=== PATIENT | male | born 1985 | race Caucasian/White ===

== ENCOUNTER 2018-02-05 12:37 | Emergency (ER) | payer MEDICAID, SELFPAY ==
[2018-02-05 12:42] VITALS: BP 145/82; PULSE 81; RESP 16; TEMP 36.8; O2SAT 98
--- NOTE | 2018-02-05 12:49 | W.ED.GENAD ---
Discharge Plan Disposition Patient Disposition: HOME Condition: Fair Discharge Details Chief Complaint: Nk/Back Pain Clinical Impression: Muscle spasm, Back pain Primary Care Provider: NONE,NONE ED Provider: Suha Foster Home Meds and New Rx's Prescriptions: New ibuprofen 600 mg tablet 600 mg PO QID PRN (Reason: pain) Qty: 20 RF: 0 diazepam [Valium] 5 mg tablet 5 mg PO TID PRN (Reason: muscle spasm) Qty: 10 RF: 0 Discharge Instructions Instructions: Muscle Spasm (ED), Back Pain (ED) Additional Instructions: Encourage water intake, this will help reduce spasm. Gentle stretching and frequent ambulation. You may take Tylenol 1,000mg every 6 hours as needed for pain, Ibuprofen 600mg tushar 6 hours as needed for pain. Next time you may take Ibuprofen is 9pm. Valium as prescribed for muscle spasm, do not drive while taking this medication. Salonpas or Lidoderm patches to help with discomfort, these are available over the counter. Physical therapy referral in packet, please call to schedule appointment. If you develop fevers/chills, increased pain, change in urinary to bowel habits or other new/worsening symptoms please seek care urgently once again. Stand Alone Forms: Physical Therapy Referral, Work Release Discharge Data Discharge Date/Time-TO BE ENTERED AT DEPARTURE: 02/05/18 14:39 Medical Decision Making Patient is a 32 year old male, covered by significant other, with chief complaint of left sided back pain that began 4 days ago after heavy lifting at work. He reports that he is lifted this object multiple times at work that he believes he did it wrong. States he has had intermittent tingling in the left buttock. Denies any weakness in the lower extremities. Denies any incontinence. No urinary retention. Sharp and dull testing was intact in lower extremities with no saddle paresthesias noted. Patient is 5 out of 5 strength in the lower extremities. He has good range of motion. Pain is elicited with forward flexion and extension. No pain with rotational movements. On exam, he is noted to have a area of swelling on the left side compared to the right of the area of discomfort. This consistent with muscle spasm. Patient be treated with Flexeril, Toradol, Tylenol and Lidoderm patch. Patient is endorsing moderate amount of pain but as per quite comfortable on exam. Proximal 30 minutes after the patient received his medications, reassess the patient. He is lying in a very unusual position in bed and reports that the pain has increased. He reports that this may be secondary to the bed. I did ask him to get up and move about the room and perform gentle stretching. We did discuss that muscle spasm can get worse with sedentary behaviors. We will augment the above with oral Valium. Discussed this plan of the patient is in agreement. Patient received Valium as well as Reiki session from [facility]. Is now reporting that his pain is much more manageable and rates at a 3 out of 10. He is moving about the room with ease. Denies any radiating pain or altered sensation. Patient I discussed pathology muscle spasm and back pain. Encourage hydration. Encouraged gentle stretching and frequent ambulation. Referral for physical therapy will be given. I encouraged use of Tylenol and/or ibuprofen as needed for discomfort. May augment this with Valium as prescribed to help with muscle spasm. We discussed topical options that may also help with discomfort. Advise close follow-up with primary care. This patient does not have primary care locally, I have asked her career professional help facilitate follow-up appointment. He was given strict return precautions. All his questions and concerns were addressed and he is in agreement with this plan. HPI General Mode of arrival: ambulatory. Date/Time Provider Initiated Documentation: 02/05/18 12:48. Limitations to Documentation: no limitations. Information obtained by: patient. History of Present Illness 32 year old M presents to the emergency department with the chief complaint of left sided back pain, described as moderate, with intensity rated at 6. Quality is described as aching and sharp (with movement), and is localized to the back. Patient reports radiation to back (radiates into the left buttock). Patient started experiencing this day(s) (4) and it has been constant. No relieving factors improve symptom(s), Movement worsens symptoms (with flexion and extension) . Patient notes no other symptoms.; denies fever/chills, nausea/vomiting, rash and weakness. Patient did receive the following treatments prior to arrival, NSAID (ibuprofen ) Related Data Home Medications Medication Instructions Recorded Confirmed diazepam [Valium] 5 mg PO TID PRN #10 tab 02/05/18 ibuprofen 600 mg PO QID PRN #20 tab 02/05/18 Previous Rx's Medication Instructions Recorded diazepam [Valium] 5 mg PO TID PRN #10 tab 02/05/18 ibuprofen 600 mg PO QID PRN #20 tab 02/05/18 Allergies Allergy/AdvReac Type Severity Reaction Status Date / Time Penicillins Allergy Intermediate Hives Unverified 07/08/15 08:39 General Stated Complaint: Nk/Back Pain KELVIN: 4 Review of Systems Constitutional Reports as per HPI and Denies weakness Cardiovascular Denies chest pain and Denies dyspnea Respiratory Denies cough and Denies dyspnea Gastrointestinal Denies change in stool character, Denies nausea and Denies vomiting Genitourinary Reports system reviewed and no additional complaints, except as docu (denies change in urinary habits) and Denies urinary incontinence Musculoskeletal Reports as per HPI, Denies abnormal gait, Denies numbness and Reports tingling (into the left buttock) Integumentary/Breasts Denies erythema and Denies rash Neurologic Denies abnormal gait, Denies numbness, Reports tingling (into the left buttock) and Denies weakness [facility] Social History Smoking/Tobacco Use Status: Current every day Exam Const General: cooperative, healthy appearing, comfortable, no acute distress, well developed and well groomed Nutritional Appearance: average body habitus and well nourished Orientation: alert and awake Eyes General: appearance normal, both eyes and all related structures Resp Effort & Inspection: normal respiratory effort, able to speak in complete sentences and no respiratory distress Auscultation: clear to auscultation bilaterally Cardio Rate: regular rate Rhythm: regular rhythm Heart Sounds: S1 normal and S2 normal Back/Spine/Pelvis Cervical Spine: normal cervical lordosis and cervical ROM normal Thoracic/Lumbar Spine: thoracic and lumbar spine normal to inspection (patient has palpable and visible spasm along the left side of the back, please see image below. No erythema, warmth. No signs of trauma. No midline or paraspinal tenderness. No pain with palpation. No step off noted. ), No bend over test abnormal (pain with palpation over the left side of his back with forward flexion and extension), No kyphosis, No mass, pain with thoraco-lumbar ROM (no pain with rotational movements), No paraspinal tenderness and No scoliosis Sacroiliac joints: not on the right and not on the left Sacrum: no ecchymosis, no erythema, no swelling and no tenderness Back/spine/pelvis image: 1. area of pain and swelling Skin General skin exam: no rashes or lesions noted Neuro General: alert and awake Cognition: normal cognition Speech: speech normal Gait: normal gait Motor: muscle tone normal throughout and strength 5/5 throughout Sensory Exam: no sensory deficits noted (sharp and dull testing is intact) DTR's: Rt Patellar: 2+, Lt Patellar: 2+, Rt Ankle: 2+ and Lt Ankle: 2+ Plantar Reflexes: Downgoing: bilateral Coordination: [id number] test normal Extrem General: normal to inspection, full ROM, normal capillary refill and no joint enlargement Psych Appearance: grossly normal and well kempt Mental Status: mental status grossly normal (at baseline) Speech and Movement: speech and movement normal Course Vital Signs Temperature 36.8 C 02/05/18 12:42 Pulse 81 02/05/18 12:42 Respiratory Rate 16 02/05/18 12:42 Blood Pressure 145/82 H 02/05/18 12:42 Pulse Oximetry 98 02/05/18 12:42 Temperature 36.8 C 02/05/18 12:42 Pulse 81 02/05/18 12:42 Respiratory Rate 16 02/05/18 12:42 Respiratory Effort 02/05/18 12:44 Blood Pressure 145/82 H 02/05/18 12:42 Pulse Oximetry 98 02/05/18 12:42 Oxygen Delivery Method Room Air 02/05/18 12:42 Oxygen Flow Rate 0 02/05/18 12:42 Pain Level 6 02/05/18 12:42
--- NOTE | 2018-02-05 13:07 | ED.GENADUL_ITS ---
Discharge Plan Disposition Patient Disposition: HOME Condition: Fair Discharge Details Chief Complaint: Nk/Back Pain Clinical Impression: Muscle spasm, Back pain Primary Care Provider: NONE,NONE ED Provider: Suha Foster Home Meds and New Rx's Prescriptions: New ibuprofen 600 mg tablet 600 mg PO QID PRN (Reason: pain) Qty: 20 RF: 0 diazepam [Valium] 5 mg tablet 5 mg PO TID PRN (Reason: muscle spasm) Qty: 10 RF: 0 Discharge Instructions Instructions: Muscle Spasm (ED), Back Pain (ED) Additional Instructions: Encourage water intake, this will help reduce spasm. Gentle stretching and frequent ambulation. You may take Tylenol 1,000mg every 6 hours as needed for pain, Ibuprofen 600mg tushar 6 hours as needed for pain. Next time you may take Ibuprofen is 9pm. Valium as prescribed for muscle spasm, do not drive while taking this medication. Salonpas or Lidoderm patches to help with discomfort, these are available over the counter. Physical therapy referral in packet, please call to schedule appointment. If you develop fevers/chills, increased pain, change in urinary to bowel habits or other new/worsening symptoms please seek care urgently once again. Stand Alone Forms: Physical Therapy Referral, Work Release Discharge Data Discharge Date/Time-TO BE ENTERED AT DEPARTURE: 02/05/18 14:39 Medical Decision Making Patient is a 32 year old male, covered by significant other, with chief complaint of left sided back pain that began 4 days ago after heavy lifting at work. He reports that he is lifted this object multiple times at work that he believes he did it wrong. States he has had intermittent tingling in the left buttock. Denies any weakness in the lower extremities. Denies any incontinence. No urinary retention. Sharp and dull testing was intact in lower extremities with no saddle paresthesias noted. Patient is 5 out of 5 strength in the lower extremities. He has good range of motion. Pain is elicited with forward flexion and extension. No pain with rotational movements. On exam, he is noted to have a area of swelling on the left side compared to the right of the area of discomfort. This consistent with muscle spasm. Patient be treated with Flexeril, Toradol, Tylenol and Lidoderm patch. Patient is endorsing moderate amount of pain but as per quite comfortable on exam. Proximal 30 minutes after the patient received his medications, reassess the patient. He is lying in a very unusual position in bed and reports that the pain has increased. He reports that this may be secondary to the bed. I did ask him to get up and move about the room and perform gentle stretching. We did discuss that muscle spasm can get worse with sedentary behaviors. We will augment the above with oral Valium. Discussed this plan of the patient is in agreement. Patient received Valium as well as Reiki session from [facility]. Is now reporting that his pain is much more manageable and rates at a 3 out of 10. He is moving about the room with ease. Denies any radiating pain or altered sensation. Patient I discussed pathology muscle spasm and back pain. Encourage hydration. Encouraged gentle stretching and frequent ambulation. Referral for physical therapy will be given. I encouraged use of Tylenol and/ or ibuprofen as needed for discomfort. May augment this with Valium as prescribed to help with muscle spasm. We discussed topical options that may also help with discomfort. Advise close follow-up with primary care. This patient does not have primary care locally, I have asked her animal daycare provider help facilitate follow-up appointment. He was given strict return precautions. All his questions and concerns were addressed and he is in agreement with this plan. HPI General Mode of arrival: ambulatory . Date/Time Provider Initiated Documentation: 02/05/18 12:48 . Limitations to Documentation: no limitations . Information obtained by: patient . History of Present Illness 32 year old M presents to the emergency department with the chief complaint of left sided back pain, described as moderate, with intensity rated at 6. Quality is described as aching and sharp (with movement), and is localized to the back. Patient reports radiation to back (radiates into the left buttock). Patient started experiencing this day(s) (4) and it has been constant. No relieving factors improve symptom(s), Movement worsens symptoms (with flexion and extension) . Patient notes no other symptoms.; denies fever/chills , nausea/vomiting, rash and weakness. Patient did receive the following treatments prior to arrival, NSAID (ibuprofen ) Related Data Home Medications Medication Instructions Recorded Confirmed diazepam [Valium] 5 mg PO TID PRN #10 tab 02/05/18 ibuprofen 600 mg PO QID PRN #20 tab 02/05/18 Previous Rx's Medication Instructions Recorded diazepam [Valium] 5 mg PO TID PRN #10 tab 02/05/18 ibuprofen 600 mg PO QID PRN #20 tab 02/05/18 Allergies Allergy/AdvReac Type Severity Reaction Status Date / Time Penicillins Allergy Intermediate Hives Unverified 07/08/15 08:39 General Stated Complaint: Nk/Back Pain KELVIN: 4 Review of Systems Constitutional Reports as per HPI and Denies weakness Cardiovascular Denies chest pain and Denies dyspnea Respiratory Denies cough and Denies dyspnea Gastrointestinal Denies change in stool character, Denies nausea and Denies vomiting Genitourinary Reports system reviewed and no additional complaints, except as docu (denies change in urinary habits) and Denies urinary incontinence Musculoskeletal Reports as per HPI, Denies abnormal gait, Denies numbness and Reports tingling ( into the left buttock) Integumentary/Breasts Denies erythema and Denies rash Neurologic Denies abnormal gait, Denies numbness, Reports tingling (into the left buttock) and Denies weakness [facility] Social History Smoking/Tobacco Use Status: Current every day Exam Const General: cooperative, healthy appearing, comfortable, no acute distress, well developed and well groomed Nutritional Appearance: average body habitus and well nourished Orientation: alert and awake Eyes General: appearance normal, both eyes and all related structures Resp Effort & Inspection: normal respiratory effort, able to speak in complete sentences and no respiratory distress Auscultation: clear to auscultation bilaterally Cardio Rate: regular rate Rhythm: regular rhythm Heart Sounds: S1 normal and S2 normal Back/Spine/Pelvis Cervical Spine: normal cervical lordosis and cervical ROM normal Thoracic/Lumbar Spine: thoracic and lumbar spine normal to inspection (patient has palpable and visible spasm along the left side of the back, please see image below. No erythema, warmth. No signs of trauma. No midline or paraspinal tenderness. No pain with palpation. No step off noted. ), No bend over test abnormal (pain with palpation over the left side of his back with forward flexion and extension), No kyphosis, No mass, pain with thoraco-lumbar ROM (no pain with rotational movements), No paraspinal tenderness and No scoliosis Sacroiliac joints: not on the right and not on the left Sacrum: no ecchymosis, no erythema, no swelling and no tenderness Back/spine/pelvis image: 2 1. area of pain and swelling Skin General skin exam: no rashes or lesions noted Neuro General: alert and awake Cognition: normal cognition Speech: speech normal Gait: normal gait Motor: muscle tone normal throughout and strength 5/5 throughout Sensory Exam: no sensory deficits noted (sharp and dull testing is intact) DTR's: Rt Patellar: 2+, Lt Patellar: 2+, Rt Ankle: 2+ and Lt Ankle: 2+ Plantar Reflexes: Downgoing: bilateral Coordination: [id number] test normal Extrem General: normal to inspection, full ROM, normal capillary refill and no joint enlargement Psych Appearance: grossly normal and well kempt Mental Status: mental status grossly normal (at baseline) Speech and Movement: speech and movement normal Course Vital Signs Temperature 36.8 C 02/05/18 12:42 Pulse 81 02/05/18 12:42 Respiratory Rate 16 02/05/18 12:42 Blood Pressure 145/82 H 02/05/18 12:42 Pulse Oximetry 98 02/05/18 12:42 Temperature 36.8 C 02/05/18 12:42 Pulse 81 02/05/18 12:42 Respiratory Rate 16 02/05/18 12:42 Respiratory Effort 02/05/18 12:44 Blood Pressure 145/82 H 02/05/18 12:42 Pulse Oximetry 98 02/05/18 12:42 Oxygen Delivery Method Room Air 02/05/18 12:42 Oxygen Flow Rate 0 02/05/18 12:42 Pain Level 6 02/05/18 12:42
[2018-02-05] MEDS: Cyclobenzaprine 10 MG TAB PO (13:12)
[2018-02-05] MEDS: Lidocaine 5% Patch 1 PATCH TP (13:12)
[2018-02-05] MEDS: Acetaminophen 500 MG TAB 1000 MG PO (13:12)
[2018-02-05] MEDS: Ketorolac 60 MG/2 ML VIAL IM (13:12)
[2018-02-05] MEDS: Diazepam 5 MG TAB PO (13:42)
[2018-02-05 14:35] VITALS: BP 134/72; PULSE 71; RESP 17; TEMP 37.1; O2SAT 98
--- NOTE | 2018-02-06 08:16 | PDOC.ERCMPRO ---
Care Management Progress Note 02/06/18-Pt seen with back pain on 02/05/18 by UBALDO Walker. F/U within 1-2 weeks referral faxed to [facility] as Dr. Terry West is Pt's PCP.
== END 2018-02-05 14:39 | disposition home or self-care (01) ==
LOC: ER 14:50
PROVIDERS: Emergency Provider Physician Assistant
DX: M62.830 Muscle spasm of back (principal); M54.5 Low back pain; R20.2 Paresthesia of skin; X50.0XXA Overexertion from strenuous movement or load, initial encounter; Y99.0 Civilian activity done for income or pay
CPT/HCPCS: 96372; 99284; 99283; J1885

== ENCOUNTER 2020-05-16 08:42 | Outpatient (REF) | payer MEDICAID, SELFPAY ==
[2020-05-16 13:26] LABS: Calculated LDL 159 mg/dL (<100); Cholesterol 251 mg/dL (<200); HDL Cholesterol 24 mg/dL (40-60); Triglyceride 343 mg/dL (<150)
== END 2020-05-16 09:02 ==
LOC: NCHCN 08:42
PROVIDERS: Visit Provider Family Medicine
DX: Z13.220 Encounter for screening for lipoid disorders (principal)
CPT/HCPCS: 80061

== ENCOUNTER 2023-11-04 11:04 | Emergency (ER) | payer MEDICAID, SELFPAY ==
--- NOTE | 2023-11-04 11:00 | DI.RAD_ITS ---
Exam(s) XR KNEE RT 3V AP,LAT,GENE EXAM: XR KNEE RT 3V AP,LAT,GENE CLINICAL HISTORY: knee pain. TECHNIQUE: 2D digital imaging was performed. COMPARISON: No exams were available for comparison FINDINGS: 3 views No evidence of acute fracture but there is a joint effusion noted. There is mild narrowing of the me dial compartment of the knee. Lateral compartment unremarkable. In the posterior soft tissues there are calcifications noted. IMPRESSION: Some degenerative change in the medial compartment. Joint effusion noted. Posterior calcifications which may be loose bodies within Duckworth cyst in the popliteal fossa. DATA REPOSITORY: RADIATION DOSE DELIVERED:
[2023-11-04 11:06] VITALS: BP 126/83; PULSE 97; RESP 18; TEMP 36.7; O2SAT 100
--- NOTE | 2023-11-04 15:21 | ED.GENADUL_ITS ---
Discharge Plan Disposition Patient Disposition: Home Condition: Stable Discharge Details Clinical Impression: Acute pain of right knee, Joint effusion Primary Care Provider: Omar West ED Provider: Michelle David Home Meds and New Rx's Prescriptions: No Action No Known Home Meds Discharge Instructions Instructions: Knee pain Additional Instructions: * Rest and elevate your knee over the next few days, can continue to apply ice pack for a few minutes every hour * Use crutches to ambulate as needed * Can take 1 g of Tylenol every 4-6 hours, not to exceed 4 g in 24 hours for pain * If symptoms or not improving, please follow-up with PCP or orthopedics for reevaluation as you may need an MRI particularly given your prior history of surgery in that knee. Discharge Data Discharge Date/Time-TO BE ENTERED AT DEPARTURE: 11/04/23 12:31 HPI General Date/Time Provider Initiated Documentation: 11/04/23 11:12 . Limitations to Documentation: no limitations . Information obtained by: patient . HPI Narrative: 38-year-old gentleman without significant past medical history presents for acute onset right knee pain. Reports onset of pain yesterday while jumping on a trampoline. States that it started hurting afterwards and he noted it to be swollen today. Denies any acute twisting or abnormal landing or fall that he noted. He has not tried any occasion for relief. He does report that a few years ago he did have surgery in that knee for management of an ACL tear. Pain is constant, worse with walking, no difficulty with movement. Related Data Home Medications Medication Instructions Recorded Confirmed Unknown [No Known Home Meds] 11/04/23 11/04/23 Allergies Allergy/AdvReac Type Severity Reaction Status Date / Time Penicillins Allergy Intermediate Hives Unverified 11/04/23 11:08 General Stated Complaint: Orthopedic KELVIN: 4 Exam Narrative Exam Narrative: Review of Systems: All systems reviewed & are unremarkable except as noted in HPI and below Well-developed, no acute distress NCAT PERRL, normal conjunctiva RRR Unlabored respiratory effort Nondistended abdomen Right knee with small effusion, no obvious deformity, neurovascularly intact, there are some tenderness with palpation, quad intact, normal straight leg raise No rashes or lesions. no focal neurologic deficits Appropriate mood and affect Course Vital Signs Vital signs: Vital Signs Temperature 36.7 C 11/04/23 11:06 Pulse 97 H 11/04/23 11:06 Respiratory Rate 18 11/04/23 11:06 Blood Pressure 126/83 11/04/23 11:06 Pulse Oximetry 100 11/04/23 11:06 Temperature 36.7 C 11/04/23 11:06 Pulse 97 H 11/04/23 11:06 Respiratory Rate 18 11/04/23 11:06 Respiratory Effort Normal, Non-Labored 11/04/23 11:09 Blood Pressure 126/83 11/04/23 11:06 Blood Pressure Position Sitting 11/04/23 11:06 Pulse Oximetry 100 11/04/23 11:06 Oxygen Delivery Method Room Air 11/04/23 11:06 Oxygen Flow Rate 0 11/04/23 11:06 Medical Decision Making Reevaluation of acute right knee pain. Initial differential includes traumatic effusion, ligamentous injury, most likely acute fracture. X-ray imaging confirms effusion, does not demonstrate acute bony process. Recommended ice rest and pain control with NSAIDs or Tylenol. Provided crutches to assist with ambulation. Recommend that he follow-up with PCP or orthopedics if his symptoms or not improving as he may need an outpatient MRI. Patient Quality:SDOH Health Related Social Needs: No Data to Display PFSH All Active Problems Joint effusion (Acute) Acute pain of right knee (Acute) Medical History Globus sensation Cigarette smoker Social History Smoking/Tobacco Use Status: Current every day Smoking risk assessment performed?: Yes Alcohol Intake: current Alcohol Intake frequency: holidays/special occasions only Drug use: Daily Substance use type: marijuana Do you feel safe at home: Yes Do you feel safe in your relationship?: Yes
== END 2023-11-04 12:31 | disposition home or self-care (01) ==
PROVIDERS: Emergency Provider Emergency Medicine; PCP Internal Medicine
DX: M25.561 Pain in right knee (principal); M25.461 Effusion, right knee
CPT/HCPCS: 73562; 99283

== ENCOUNTER → 2023-12-09 01:56 | Outpatient (CLI) | payer MEDICAID, SELFPAY ==
--- NOTE | 2023-12-09 06:45 | DI.MRI_ITS ---
Exam(s) MR LOWER JOINT RT WO EXAM: MR LOWER JOINT RT WO CLINICAL HISTORY: R KNEE PAIN,internal derangement rt knee, m23.91 TECHNIQUE: Multiplanar multisequence MRI of the knee was performed. COMPARISON: MR MRI R LOWER JOINT WO CONT from 03/24/2015 CR XR KNEE RT 3V AP,LAT,GENE from 11/04/2023 FINDINGS: EFFUSION: There is a prominent knee joint effusion with some synovial thickening. There is a septate d Duckworth's cyst in the medial popliteal fossa which measures approximately 3 cm length by 1 cm AP. Co ntains multiple septations as well as few small loose bodies therein your probably cartilage fragment s from the medial compartment. MARROW:There is bone contusion signal in the medial tibial plateau, more so posteriorly than anterior ly. There is also subarticular edema in the main and posterior weight-bearing surfaces of the medial femoral condyle related to advanced degenerative thinning of the articular cartilage at this level. There are no ominous osseous lesions. PATELLOFEMORAL COMPARTMENT: The quadriceps tendon is intact. The patellar ligament is intact. There is no significant thinning of the retropatellar cartilage. No evidence of fissure nor signific ant chondral defect. No osteochondral defect at this level. CRUCIATE LIGAMENTS: The appearance of the anterior cruciate ligament reflects chronic tearing of this structure. There also intra-articular septated cyst associated with the region of the torn superior aspect of the ACL.The posterior cruciate ligament is intact. MEDIAL COMPARTMENT/MEDIAL MENISCUS: There is tearing of the medial meniscus, the appearance of which appears chronic and possibly also related to prior instrumentation. There is truncation of the body in addition to tearing of the posterior horn and part of the anterior horn. There is advanced multifocal full-thickness cartilage loss over the main in posterior weight-bearing surfaces of the medial femoral condyle with subarticular edema at these levels. MEDIAL COLLATERAL LIGAMENT: Chronic sprain signal. No high-grade tear. LATERAL COMPARTMENT/LATERAL MENISCUS: Posterior horn of the lateral meniscus appears unremarkable. S ome increased signal is noted in the more medial aspect of the anterior horn bordering on tear of the superior surface. There are no chondral defects, osteochondral defects, subarticular marrow edema, nor osteophytes evident. ILIOTIBIAL BAND: Intact LATERAL COLLATERAL LIGAMENT COMPLEX: The fibular collateral ligament is intact. The biceps femoris t endon is intact.Popliteus muscle and tendon are intact. IMPRESSION: 1. There is advanced multifocal full-thickness cartilage loss in the main and posterior weight-bearin g surfaces of the medial femoral condyle and corresponding tibial plateau with bone edema in the suba rticular posterior aspect of the medial tibial plateau and medial femoral condyle. Multiple small ca rtilage fragments are seen in a multi-septated Duckworth's cyst in the popliteal fossa. 2. Chronic type tear of the medial meniscus which appearance is also probably related to possible ins trumentation. Findings appear somewhat consequent to findings which were evident on prior MRI scan o 2014. 3. Chronic ACL tear. The PCL is intact 4. No significant collateral ligament tears 5. Patellofemoral compartment appears unremarkable. DATA REPOSITORY:
== END ==
PROVIDERS: PCP Internal Medicine; Visit Provider Student in an Organized Health Care Education/Training Program
DX: M23.91 Unspecified internal derangement of right knee (principal); M71.21 Synovial cyst of popliteal space [Baker], right knee
CPT/HCPCS: 73721

== ENCOUNTER 2024-05-28 07:35 | Day surgery (SDC) | payer MEDICAID, SELFPAY ==
[2024-05-28] VITALS (47 sets, daily range): BP systolic 129–159; BP diastolic 76–99; PULSE 62–89; RESP 8–25; TEMP 36.4–36.9; O2SAT 95–99; BMI 29.2
--- NOTE | 2024-05-28 07:10 | W.PM.DSUDISC ---
Date of service: 05/28/24 Discharge Plan Disposition Patient Disposition: Home Condition: Stable Discharge Details Attending Provider: Michael Alaniz Primary Care Provider: Omar West Home Meds and New Rx's Prescriptions: New naproxen 250 mg tablet 250 - 500 mg PO BID PRN (Reason: Moderate pain) Qty: 40 0RF aspirin 81 mg tablet,delayed release (DR/EC) 81 mg PO BID 30 Days Qty: 60 0RF oxycodone 5 mg tablet 5 - 10 mg PO Q4H PRN (Reason: Moderate to severe pain) Qty: 18 0RF Discharge Instructions Additional Instructions: Surgery: Right knee medial unicondylar knee arthroplasty and open ACL reconstruction (quadriceps allograft) Activity: Protected weightbearing with crutches for 6 weeks. Recommend elevation to minimize swelling and discomfort. Use knee brace when ambulatory until good quadriceps muscle control returns. It is important to restore full knee extension as soon as possible. Gently increase knee flexion over the next few weeks. Do not rest with pillows behind knee to prevent knee from getting stuck bent. Encourage ankle pumps and wiggling toes to increase circulation. A physical therapy prescription will be sent electronically to begin in about 3 weeks. Avoid heavy physical work for 4+ months. Avoid sporting activities for 9+ months. Prescriptions: Aspirin 81 mg take 1 twice a day to prevent a blood clot 30 days Naproxen 250 mg take 1-2 every 12 hours with a meal as needed for moderate pain Oxycodone 5 mg take 1-2 every 4-6 hours as needed for severe pain You may use [id number] Tylenol (acetaminophen) as needed for mild pain. These pain medications may be taken all at once or in different combinations as needed. Also, recommend Colace (docusate) as a stool softener as surgery and pain medicine cause constipation. You may try [id number] diphenhydramine (Benadryl) 25-50 mg nightly as a sleep aid Dressings: Leave Band-Aid in place until follow-up. Keep clean and dry at all times. May remove Atif wraps tomorrow. May re-wrap with Atif wrap to help control swelling as needed. Follow-up: 10-[address] Alaniz You may take off the leg compression Atif wrap and stockings tomorrow at home. You may also leave them on a few days longer if you have a history of leg swelling or edema. Let us know right away if you develop any redness, drainage, fevers, chest pain, or trouble breathing. Do not drink alcohol or drive for at least 24 hours after anesthesia. Please call the office during business hours with any questions or concerns. Stand Alone Forms: Anesthesia Discharge Inst., Anes.Nerve Block Instructions, Irwin Guallpa (DSU) Referrals: Michael Alaniz MD [ [facility] STAFF PHYSICIAN] - 06/09/24 11:00 am Discharge Orders Discharge Orders: Discharge Order (Routine); Ordered 05/28/24 Ordered By: Perry Godfrey DS: Diagnosis Discharge Diagnosis (1) Arthritis of right knee: Status: Acute (2) Old complete tear of anterior cruciate ligament of right knee: Status: Acute
--- NOTE | 2024-05-28 07:23 | ROE_ITS ---
Operative Note Operative Note PRE-OP DIAGNOSIS: 1. 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 Right knee medial unicompartmental arthroplasty, CPT # [address] 2. Open ACL reconstruction, CPT # 63007: Quadriceps allograft The assistant toddler teacher was medically required as this procedure involves retraction, protection of neurovascular structures, and manipulation of multiple instruments and implants at the same time, which cannot be done without a skilled assistant toddler teacher. SURGEON: Michael Alaniz PHOTOGRAPHIC PRESS SCREWMAKER: Perry Godfrey ANESTHESIA TYPE: Local By Surgeon, General LMA/ETT and Primary Nerve Block Refer to Anesthesia Record ESTIMATED BLOOD LOSS: 250 COMPLICATIONS: None Patient was transported to: PACU Patient's condition: stable Implants: DePuy Sigma HP partial knee size 4 metal-backed tibial tray, 8 mm tibial insert fixed bearing, size 5 femoral component Arthrex TightRope II BTB and ABS with 14mm round button Quadriceps allograft 10 x 70 mm Indications: Please see complete medical record for details. Findings: Isolated medial compartment arthritis, complete chronic ACL deficiency with high-grade instability. Procedure Description: The patient was taken to the operating room and transferred to the operating room table. General anesthesia was induced. All bony prominences were well- padded. Preoperative antibiotics and 1 g TXA were administered. A tourniquet was placed loosely over padding high on the patient's thigh. The knee and lower extremity were prepped and draped in the usual sterile fashion. The correct patient, procedure, and side of the procedure were all verified prior to incision. A slightly medial of midline longitudinal approach was used to the knee extending from the superior pole the patella to the distal aspect of the tibial tubercle. The quadriceps tendon, patella borders, and patellar tendon were exposed. A full-thickness arthrotomy was performed starting splitting the quadriceps tendon and leaving a sleeve of tissue on the medial aspect of the patella and taking care to progress along the medial margin the patellar tendon. The MCL was elevated off the proximal medial tibia. The intercondylar area was inspected. As expected, there was complete ACL disruption with only small remnant on the tibial side. Carefully, the femoral origin on the lateral intercondylar wall and insertion between the proximal previous spines was debrided of tissue for anatomic ACL reconstruction. The proximal tibia had high-grade anterior instability with the ability to dislocate anteriorly nearly the entire medial compartment. Care was taken to ensure that the ACL would be placed with enough space between anterior horn the lateral meniscus and the lateral aspect of the medial knee replacement. The tibial alignment jig was set in place on the anterior medial aspect of the tibia and carefully adjusted to achieve proper alignment in the coronal and sagittal planes. Liberty was minimized to avoid anterior tibial translation. Reciprocating saw was used to create the vertical cut at the medial aspect of the medial tibial eminence taking care to leave enough space for ACL reconstruction. The transverse cut was then done using the microsagittal saw through the jig taking care to retract and protect the MCL. The bone piece and cut were inspected and found to be appropriate for patient anatomy. A box rasp was used to clean up the cut especially the L component. The 7 mm spacer block was inserted and found to have good stability in extension, but too tight in flexion. The cutting block was put back on, slope increased a couple degrees and the cut redone really just removing bone from the mid to posterior area. Posterior tibial cysts were encountered as expected given the MRI. The 7 mm block then had n good stability in full extension and slightly tight and 90 degrees of flexion with approximately 2 mm of joint space opening in about 20 degrees of flexion. The tibial trial spacer block was used to zenon the rotational alignment and anterior extent of the femoral component. The spacer block was removed and the tibia was sized with the depth gauge. The distal femoral cutting block was inserted taking care to orient it appropriately. The cut was done using the saw through the guide. The +1 mm posterior cutting block was used to equalize the flexion extension gaps and then applied to the distal cut, ensured to be flush, rotation set, and it was pinned in place. The posterior cut was completed through the guide. The guide was removed, and the femur was sized with the femoral sizing blocks. The appropriate sized cutting jig was selected. Care was taken to ensure the block was flush with the resected distal and posterior femur bone surfaces. A curved gouge was used to cut the profile of the proximal tip of the femoral prosthesis, zenon the extent of the anterior chamfer cut, and prevent trochlear cartilage delamination. The anterior cut was done using the osteotomes, the drill was used to drill the 2 peg holes, and the posterior chamfer cut was done through the jig with the saw. This last cutting block and bone cuts were removed. The minimal medial meniscus remnant was then removed. The femoral component trial was placed on the distal femur and the 7 mm spacer block confirmed appropriate balancing in flexion, extension, and again 2 mm of medial joint space opening in about 20 degrees of flexion. There was still high-grade anterior instability. Tibial template was inserted and the size confirmed to be appropriate. It was moved slightly medial of the spine cut to accommodate planned ACL socket placement. The keel was used by hand to remove bone from the slot and the tibial peg drill was used in the peg hole. The quadriceps allograft was prepared on the back table after soaking and 1 g of vancomycin and 250 mL of saline. It measured 9.5 mm on the tibial side and 10 mm on the femoral side and 70 mm length. The BTB tight rope was loaded on the femoral side and the open tight rope on the tibial side. Tensioning sutures marked and shuttling link added. FiberTape internal brace was added to the femoral button. The construct demonstrated good stability and was compressed in a 9 mm graft tube. The femoral guide was then used and carefully placed in the appropriate position on the lateral intercondylar wall under direct visualization while retracting the PCL out of the way and directly down on bone along the lateral femoral condyle with gentle retraction of the open incision slightly more laterally. The flip cutter was drilled to the correct location, deployed a 10 mm, and then a 30 mm socket created. The tibial guide was then placed with a steeper 60 wrangle chosen to try to increase distance and reduce stress between it and the unicondylar knee replacement. The flip cutter was drilled to the tibial footprint of the ACL, deployed to 9.5 mm and then a 35 mm socket created. The tibial socket did hug the vertical cut for the medial knee replacement, but did not involve the medial surface. The graft was then readily shuttled into both the femoral and tibial sockets. The femoral button was flipped manually in about 15 mm the graft brought into the femoral side before docking into the tibia and send another 15 mm graft into the side. 14 mm round larger cortical button was chosen for extra strength and ease of placing bone flush on the open anterior medial tibia. The button was brought down towards the anteromedial cortex, but the graft was not tensioned. The FiberTape internal braces were brought along the anterior aspect of the graft and through the holes in the button as well and left for tightening later. Graft position was appropriate and the knee demonstrated greatly increased anterior instability. Final tightening will be done after UKA placement. The tibial dino e of the graft covered the socket, which help avoid cement entering the tibia. The pulse lavage was used to clean the bone surfaces. SmartSet medium viscosity cement was prepared. At the appropriate time during the early working phase, the cement was applied to the backside of the tibial and femoral components. Then, cement was carefully placed and pressurized into the proximal tibia taking care to only have minimal cement posteriorly. The tibial component was inserted at an angle and then impacted directing pressure from posterior to anterior to keep the flow of cement from posterior to anterior. Cement was then applied to the distal femur and the femoral component impacted. Excess cement was removed. The knee was brought into full extension and this position with axial load was maintained until the cement was completely hardened at 20 minutes. A combination R.E.C.K. (123 mg Ropivacaine, 0.25 mg Epinephrine, 0.04 mg Clonidine, and 15 mg Ketorolac) 50 ml injection was widely infiltrated about the knee. The wound was copiously irrigated with the pulse lavage and Surgiphor. The ACL was final tightened after ranging the knee advancing to about 20 mm on both the femoral and tibial sides with the cortical buttons nice and secure flush to the cortices. The Jenna exam and anterior drawer exams were remarkably improved and stable. There was no notching in full extension. On the graft was gently adjacent on the medial side to the lateral aspect of the tibial component. The UKA was trialed and the slightly tighter 8 mm final tibial tray was inserted and clicked in place. Slightly tighter due to young age and physical demands. The knee was tested through range of motion found to be stable with equal balancing from full extension to flexion past 90 degrees and a couple millimeters of medial joint space opening in about 20 degrees of flexion. Jenna and anterior drawer exams were rockstable. The femoral extra sutures were removed. Final tensioning confirmed in full extension. The femoral side backup knots tied over the button and tails cut. On the tibial side the tight rope was also backup knots tied and cut. The internal brace fiber tapes were then tied by hand over the button with about about a millimeter of laxity to avoid over constraint. Appropriate hemostasis was achieved. The capsule was approximated using #1 Vicryl in a figure-of-8 interrupted fashion and then closed using Stratafix #1 PDS barbed suture in a running fashion. The superficial layers were irrigated. Subcutaneous tissue was closed using 2-0 Monocryl in a buried interrupted fashion. Skin was closed using 3-0 Monocryl in a buried subcuticular fashion. The skin incision was glued and then covered with a Mepilex Ag dressing. An Atif wrap was applied from the foot up to the thigh and a foam knee immobilizer placed. The patient awoke from anesthesia without complication was transferred to the recovery room in stable condition. Date of Procedure: 05/28/24
--- NOTE | 2024-05-28 08:02 | W.ANESPRE ---
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 cruciate ligament of right knee: (2) Arthritis of right knee: Meds Allergies and Home Medications Allergies Allergy/AdvReac Type Severity Reaction Status Date / Time Penicillins Allergy Intermediate Hives Verified 05/28/24 08:01 Home Medication ?Medication ?Instructions ?Recorded aspirin 81 mg tablet,delayed 81 mg PO BID Prevent blood clot 30 05/28/24 release days #60 tabs naproxen 250 mg tablet 250 - 500 mg (1 - 2 x 250 mg) PO 05/28/24 BID PRN Moderate pain #40 tabs oxycodone 5 mg tablet 5 - 10 mg (1 - 2 x 5 mg) PO Q4H 05/28/24 PRN Moderate to severe pain #18 tabs Current Visit Medications: Current Medications Generic Name Dose Route Start Last Admin Trade Name Freq PRN Reason Stop Dose Admin Acetaminophen 1,000 mg 05/28/24 06:00 Acetaminophen 500 Mg Tab PO 05/28/24 23:59 PREOP HIRAL Celecoxib 400 mg 05/28/24 06:00 Celecoxib 200 Mg Cap PO 05/28/24 23:59 PREOP HIRAL Gabapentin 300 mg 05/28/24 06:00 Gabapentin 300 Mg Cap PO 05/28/24 23:59 PREOP HIRAL Ringer's Solution 1,000 mls @ 30 mls/hr 05/28/24 06:00 IV 05/28/24 23:59 INFUSION HIRAL Cefazolin Sodium 3,000 mg/ 100 mls @ 200 mls/hr 05/28/24 06:00 Sodium Chloride IV 05/28/24 23:59 PREOP HIRAL Tranexamic Acid/Sodium Chloride 1,000 mg in 100 mls @ 600 mls/hr 05/28/24 06:00 IVPB 05/28/24 23:59 PREOP HIRAL IV Miscellaneous Supplies 1 each 05/28/24 06:00 Iv Access IV 05/28/24 23:59 DIRECTED HIRAL Oxycodone HCl 0 mg 05/28/24 07:10 Oxycodone 5 Mg Tab PO 06/27/24 07:09 Q3H PRN PRN Pain Sodium Chloride 0 ml 05/28/24 06:00 Normal Saline Flush 10 Ml Syr IV 05/28/24 23:59 PRN PRN Sodium Chloride 0 ml 05/28/24 06:00 Normal Saline 10 Ml Vial IJ 05/28/24 23:59 DIRECTED PRN Sterile Water 0 ml 05/28/24 06:00 Water,Injection,Sterile 10 Ml Vial IJ 05/28/24 23:59 DIRECTED PRN PFSH Active Problems Active Problems: Problem Status Onset Code Arthritis of right knee Acute M17.11 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 Vital Signs and Lab Results Lab Results Blood Type / Crossmatch: No Data to Display Complete Blood Count: No Data to Display Complete Metabolic Panel: No Data to Display Liver Function Panel: No Data to Display Coagulation Panel: No Data to Display Cardiac Panel: No Data to Display Arterial Blood Gas: No Data to Display Venous Blood Gas: No Data to Display Pancreas Panel: No Data to Display Thyroid Panel: No Data to Display Infectious Disease: No Data to Display Blood Cultures: No Data to Display Toxicology Panel: No Data to Display Anesthesia Assessment and Plan Anesthesia History Personal History: No History of Anesthesia Complications Family History: No Family History of Anesthesia Complications Exercise Tolerance Exercise Tolerance: Metabolic Equivalents>4 Pertinent Negatives Pertinent Negatives: No Symptoms of GERD, No Major Cardiovascular Symptoms or Complaints, No Major Pulmonary Symptoms or Complaints and No History of CVA/TIA Cardiac & Pulmonary Exam Cardiac Exam: Normal S1/S2 Heart Sounds Pulmonary Exam: Clear Bilateral Breath Sounds Implantable Cardiac Device Does patient have a Pacemaker or an ICD?: No Airway Exam Known Difficult Airway: No Mallampati Class: 3 Mouth Opening: Normal (> 3cm) Thyromental Distance: Greater than 3 cm Neck Range of Motion: Full ROM Neck Circumference: Normal Teeth Condition: Normal Dentition ASA Classification ASA Score: ASA 2 Emergency Case?: No NPO Status NPO Status: NPO Clears >2 hours, Solids >8 hours Anesthesia Plan Resuscitation Status: Full Code Anesthesia Technique: General Anesthesia Airway Planned: Endotracheal Tube Pain Management: Surgeon and patient request nerve block (Right Femoral nerve block as discussed with Dr. Alaniz) Monitors Used: Standard Monitors
[2024-05-28] MEDS: Acetaminophen 500 MG TAB 1000 MG PO (08:22)
[2024-05-28] MEDS: Celecoxib 200 MG CAP 400 MG PO (08:22)
[2024-05-28] MEDS: Gabapentin 300 MG CAP PO (08:22)
[2024-05-28] MEDS: Lactated Ringers 1,000 ML 30 ML IV ×2 (08:37→15:38)
--- NOTE | 2024-05-28 09:14 | W.ANESNERVE ---
Nerve Block Single Injection Procedure Date and Time Date Performed: 05/28/24 Procedure Start: 08:54 Location Where Procedure Performed Procedure Location: Day Surgery Unit Reason Performed: Postoperative Analgesia Requesting Provider: Michael Alaniz Timeout Performed Timeout Performed: Yes Monitoring Used ECG, Blood Pressure and SpO2 Sterility Sterility: Hand Hygiene, Surgical Cap, Surgical Mask, Sterile Gloves and Chlorhexidine Sedation Given During Procedure Sedation Given (Indicate Dose Given): Versed IV Dose:: 2 mg Patient Mental Status Patient Mental Status: Sedate with meaningful communication Nerve Block 1st Nerve Block: Laterality: Right Block Type: Femoral Ultrasound Image Saved?: Yes Needle / Catheter Used: 100mm SonoPlex II Local Anesthetic Bolus (Indicate Dose Given): Lidocaine used for local infiltration of skin, Injected in 3-5ml increments after negative blood aspiration, Bupivacaine 0.5% Dose:: 10 and Exparel Dose:: 10 Additives (Indicate Dose Given): Normal Saline Ultrasound: Sterile probe cover and gel used Nerve Stimulator: Supplement to Ultrasound use and No twitch or parasthesia noted < 0.5 mA Paresthesia: None Post Procedure Pain score (0-10): 0 Procedure Tolerated: No Complications and Patient tolerated well Procedure Outcome: Successful Performed By: Sacha Hendricks
[2024-05-28] MEDS: ceFAZolin 3,000 MG in Normal Saline 100 ML 200 MG IV (10:17)
[2024-05-28] MEDS: TRANEXAMIC ACID/SOD. CHL. 1,000 MG/100 ML BAG 600 MG IVPB (10:43)
[2024-05-28] MEDS: Bupivacaine 0.25% Pres-Free W/EPI 30 ML VIAL (10:55)
--- NOTE | 2024-05-28 15:45 | DI.RAD_ITS ---
Exam(s) XR KNEE RT 2V AP,LAT EXAM: XR KNEE RT 2V AP,LAT INDICATION: Right knee arthritis. COMPARISON: CR XR KNEE RT 3V AP,LAT,GENE from 11/04/2023 MR MR LOWER JOINT RT WO from 12/09/2023 TECHNIQUE: 2D digital imaging was performed. Two views. Portable. FINDINGS: A medial femoral tibial joint space prosthesis has been placed. The alignment appears satisfactory. There is residual postsurgical air in the anterior soft tissues. DATA REPOSITORY: RADIATION DOSE DELIVERED:
--- NOTE | 2024-05-28 16:14 | W.ANESPOSTOP ---
Postoperative Evaluation Date, Time and Location Date Performed: 05/28/24 Time Performed: 16:15 Patient Location: PACU Vital Signs Most Recent Imported Vital Signs: Most Recent Vital Signs Temp Pulse Resp BP Pulse Ox 36.6 C 78 17 152/93 H 96 05/28/24 16:05 05/28/24 16:06 05/28/24 16:06 05/28/24 16:06 05/28/24 16:06 Pain Score Most Recent Pain Score: Most Recent Pain Score Pain Level 1 05/28/24 16:05 Assessment Mental Status: Awake (Alert & Oriented to Patient Baseline) Airway and Respiratory Function: Patent airway with normal (patient baseline) respiratory exam Cardiovascular Function: Hemodynamically Stable Hydration Status: Adequately Hydrated Nausea & Vomiting: No Nausea or Vomiting Pain: Pain is tolerable per patient Peripheral Nerve Block: Regional nerve block not resolved at time of post operative discharge
--- NOTE | 2024-05-29 14:02 | PDOC.ANES ---
Date of service: 05/29/24 Time of Service: 14:02 Anesthesia Note Report Anesthesia Note: I reached out to Jewel via his listed cell phone. We discussed his bilateral arm discomfort and his left hand numbness. He describes a pinching sensation in the back of both elbows. He describes numbness without weakness to the thumb, pointer finger and middle finger of his left hand that developed shortly before discharge. He reports that his middle finger has since resolved but his thumb and his pointer finger are still numb and tingly. We discussed that this should resolve over the next week or so and to please reach out if it worsens. I did discuss with him the findings of irregularities on his epiglottis and that we have photos and video from the glidescope that we have looped in Dr. Tello and that Dr. Alaniz is aware. We are waiting for Dr. Tello's opinion on the video and what are next steps should be. I answered all of Jewel's questions and reminded him that Dr. Alaniz's RN will be reaching out on Saturday.
--- NOTE | 2024-06-01 11:59 | PDOC.ANES ---
Anesthesia Note Report Anesthesia Note: Reached out to Jewel to discuss his arm numbness. It sounds like his numbness has resolved in his hands. He will reach out to US or Korsh with any questions or change in his numbness.
== END 2024-05-28 17:25 | disposition home or self-care (01) ==
LOC: SUR 07:35
PROVIDERS: PCP Internal Medicine; Visit Provider Student in an Organized Health Care Education/Training Program
PROC: (CPT 27446; principal; 2024-05-28 09:00)
PROC: (CPT 29888; 2024-05-28 09:00)
DX: M17.11 Unilateral primary osteoarthritis, right knee (principal); M23.51 Chronic instability of knee, right knee; G89.18 Other acute postprocedural pain
CPT/HCPCS: 27446; C1776; 64447; 73560; J0131; J0665; J0666; J0690; J1100; J1171; J2250; J2405; J2704; J3370; J3475

== ENCOUNTER 2024-06-09 15:00 | Outpatient (CLI) | payer MEDICAID, SELFPAY ==
--- NOTE | 2024-06-09 11:00 | DI.RAD_ITS ---
Exam(s) XR KNEE RT 2V AP,LAT EXAM: XR KNEE RT 2V AP,LAT CLINICAL HISTORY: F/U RIGHT KNEE UKA. TECHNIQUE: 2D digital imaging was performed. Two images were obtained. AP and lateral views were ob tained. COMPARISON: CR XR KNEE RT 2V AP,LAT from 05/28/2024 FINDINGS: BONES: There are stable post operative changes of a unilateral knee replacement present. No fracture or dislocation. JOINTS: The orthopedic hardware is in good position. No evidence of hardware loosening. There is a joint effusion. SOFT TISSUE: There is soft tissue swelling anterior to the knee. IMPRESSION: Right unilateral knee arthroplasty. Persistent soft tissue swelling around the knee and a persistent joint effusion. DATA REPOSITORY: RADIATION DOSE DELIVERED:
== END 2024-06-09 15:01 | disposition home or self-care (01) ==
LOC: DIORS 15:00
PROVIDERS: Visit Provider Student in an Organized Health Care Education/Training Program
DX: M17.11 Unilateral primary osteoarthritis, right knee (principal)
CPT/HCPCS: 73560

== ENCOUNTER 2024-07-21 15:43 | Outpatient (CLI) | payer MEDICAID, SELFPAY ==
--- NOTE | 2024-07-21 08:45 | DI.RAD_ITS ---
Exam(s) XR KNEE RT 2V AP,LAT EXAM: XR KNEE RT 2V AP,LAT INDICATION: F/U RIGHT UKA AND ACL RECONSTRUCTION. COMPARISON: CR XR KNEE RT 2V AP,LAT from 06/09/2024 TECHNIQUE: 2D digital imaging was performed. Two views. FINDINGS: Stable alignment of medial femoral tibial joint space prosthesis. Prior ACL repair. Decreased joint effusion. Anterior soft tissue swelling remains present. DATA REPOSITORY: RADIATION DOSE DELIVERED:
== END 2024-07-21 15:44 | disposition home or self-care (01) ==
LOC: DIORS 15:43
PROVIDERS: Visit Provider Student in an Organized Health Care Education/Training Program
DX: M17.11 Unilateral primary osteoarthritis, right knee (principal)
CPT/HCPCS: 73560

== ENCOUNTER 2024-09-22 09:54 | Outpatient (CLI) | payer MEDICAID, SELFPAY ==
--- NOTE | 2024-09-22 09:30 | DI.RAD_ITS ---
Exam(s) XR KNEE RT 2V AP,LAT EXAM: XR KNEE RT 2V AP,LAT CLINICAL HISTORY: F/U UKA/ACL RECONSTRUCTION. TECHNIQUE: 2D digital imaging was performed. Two images were obtained. AP and lateral views were ob tained. COMPARISON: CR XR KNEE RT 2V AP,LAT from 07/21/2024 FINDINGS: BONES: There are stable post operative changes of a unicompartmental knee arthroplasty present. No f racture or dislocation. There also findings of a prior ACL repair. JOINTS: The orthopedic hardware is in good position. No evidence of hardware loosening. There is a small joint effusion. Small osteophytes are seen at the lateral femoral tibial joint and the posteri or patella. SOFT TISSUE: Normal. IMPRESSION: 1. Stable unicompartmental knee arthroplasty. 2. Mild degenerative changes of the right knee. 3. Small joint effusion. DATA REPOSITORY: RADIATION DOSE DELIVERED:
== END 2024-09-22 09:55 | disposition home or self-care (01) ==
LOC: DIORS 09:55
PROVIDERS: PCP Student in an Organized Health Care Education/Training Program; Referring Provider Student in an Organized Health Care Education/Training Program; Visit Provider Student in an Organized Health Care Education/Training Program
DX: M17.11 Unilateral primary osteoarthritis, right knee (principal); M23.51 Chronic instability of knee, right knee
CPT/HCPCS: 99213; 73560